=== PATIENT | male | born 1960 | race Caucasian/White ===

== ENCOUNTER → 2025-06-14 10:49 | Outpatient (REF) | payer MEDICARE, BC, SELFPAY | LOC: HWRAD 10:49 | PROVIDERS: ATTENDING PHYSICIAN Nurse Practitioner Acute Care | DX: M25.532 Pain in left wrist (principal); R22.32 Localized swelling, mass and lump, left upper limb | CPT/HCPCS: 73110; 73130 ==

== ENCOUNTER 2025-06-24 11:38 | Emergency (ER) | payer MEDICARE, BC, SELFPAY ==
[2025-06-24 11:52] VITALS: BP 126/77
[2025-06-24 12:23] VITALS: BMI 25.6
[2025-06-24 13:18] VITALS: BP 100/70
--- NOTE | 2025-06-24 13:21 | ED.GENMED ---
History of Present Illness
<Navya Moses PA-C - Last Filed: 06/24/25 15:23>
General
Chief Complaint: Extremity Pain (non-traumatic)
Source: patient
Exam Limitations: none
Time Seen by Provider: 06/24/25 13:06
History of Present Illness
History of Present Illness:
65yo right hand dominant male with a history of hypertension and alcohol abuse currently in rehab presenting for evaluation of left wrist pain and swelling. He developed pain about 5 weeks ago. He denies any specific trauma or inciting incident.
He has noticed worsening swelling over the past week or so. He is now having trouble sleeping at night due to the pain. He has tried Tylenol without relief. He was seen by dermatology earlier this week and was prescribed doxycycline which he
started about 4 days ago. He had outpatient x-rays which were reportedly normal. He is scheduled to see orthopedics next week but does not feel he can wait that long. He denies any fevers or chills. No history of IV drug use or diabetes.
Phy Exam
<Navya Moses PA-C - Last Filed: 06/24/25 15:23>
General Physical Exam
General Presentation: well appearing and no apparent distress
General Skin: warm and dry
General Habitus: normal
General Mental: alert
ENT Exam
ENT Exam: normocephalic
Neurological Exam
Neurological Exam: alert
[place] Coma Scale
Eye Opening: Spontaneous
Verbal Response: Oriented
Motor Response: Obeys Commands
GCS Total Score: 15
Musculoskeletal Exam
Musculoskeletal Exam: other (L wrist: Focal area of swelling at the palmar radial aspect of the wrist that is tender to touch. Surrounding reactive swelling present. No drainage, overlying erythema/warmth, drainage, or fluctuance. ROM of wrist
decreased 2/2 swelling. No pain with micromotion. 2+ radial pulse.)
Skin Exam
Skin Exam: normal color and warm/dry
Psychiatric Exam
Psychiatric Exam: normal mood/affect
Course
<Navya Moses PA-C - Last Filed: 06/24/25 15:23>
Orders/Labs/Results
Orders:
Orders
06/24/25 13:36
[place] Wrist Left-Treatment ONCE
Ketorolac [Toradol] 30 mg IM NOW STA
Vital Signs
Initial and Last Documented VS:
Initial Vital Signs
Temp Pulse Resp BP Pulse Ox
98.6 F 70 18 126/77 95
06/24/25 11:52 06/24/25 11:52 06/24/25 11:52 06/24/25 11:52 06/24/25 11:52
Last Documented Vital Signs
Temp Pulse Resp BP Pulse Ox
98.6 F 71 15 100/70 97
06/24/25 11:52 06/24/25 13:18 06/24/25 13:18 06/24/25 13:18 06/24/25 13:24
<Elvie Nguyen MD - Last Filed: 06/24/25 13:41>
Orders/Labs/Results
Orders:
Orders
06/24/25 13:36
[facility] Wrist Left-Treatment ONCE
Ketorolac [Toradol] 30 mg IM NOW STA
Vital Signs
Initial and Last Documented VS:
Initial Vital Signs
Temp Pulse Resp BP Pulse Ox
98.6 F 70 18 126/77 95
06/24/25 11:52 06/24/25 11:52 06/24/25 11:52 06/24/25 11:52 06/24/25 11:52
Last Documented Vital Signs
Temp Pulse Resp BP Pulse Ox
98.6 F 71 15 100/70 97
06/24/25 11:52 06/24/25 13:18 06/24/25 13:18 06/24/25 13:18 06/24/25 13:24
<Navya Moses PA-C - Last Filed: 06/24/25 15:23>
MDM/Problems Addressed
Differential Diagnosis Includes:
65yoM here with L wrist pain/swelling x 5 weeks that is worsening. Scheduled to see ortho next week. No f/c. VSS. There is a focal area of swelling over the radial aspect of the wrist that is tender. No fluctuance, erythema, or drainage to suggest
abscess. There is reactive swelling surrounding this. No clinical evidence of septic arthritis. LUE is neurovascularly intact. Differential diagnosis includes: ganglion cyst, complex cyst, lipoma
Bedside ultrasound performed with Dr. Nguyen. No fluid collection or areas amenable to drainage seen on ultrasound. ?Lipoma. He was given a wrist brace and a prescription for ibuprofen. He was encouraged to f/u with orthopedics next week as previously
scheduled. He was discharged in stable condition.
<Navya Moses PA-C - Last Filed: 06/24/25 15:23>
*Pulse Oximetry
SaO2: 97
Oxygen Mode of Delivery: Room air
Patient hypoxic: no
*Critical Care Note
Total Time (30-74mins, 75-104mins- exclusive of procedures): Not Applicable
ED Attending Note
<Navya Moses PA-C - Last Filed: 06/24/25 15:23>
-
Portions of this chart may have been created with voice recognition software.� Occasional wrong word or��sound alike� substitutions may have occurred due to the inherent limitations of voice recognition software.
<Elvie Nguyen MD - Last Filed: 06/24/25 13:41>
ED Attending Note
Patient seen and examined by attending physician: Yes
I performed the substantive portion of visit, reviewed & personally made and approve the management plan that is documented in note by myself or KAI.: Yes
ED Attending Note:
I have seen and evaluated the patient with a [id number] encounter. I have spoken to the [KAI] and involved in the medical history, the physical exam, medical decision making.
Evaluation and management service: agree unless noted differently below.
Results interpretation: agree unless noted differently below.
65-year-old man presenting to the emergency department left wrist pain and swelling. Patient states that this is been ongoing for quite some time. He saw his primary care doctor some to dermatology. They started him on doxycycline and treat it
like an abscess. He does have orthopedic appointment scheduled for a few days. However the pain has been persistent so he came in for further evaluation. No numbness tingling. No weakness. He does state the swelling has been worse. No redness.
No fevers chills. No history of IV drug use. On my evaluation patient is resting comfortably. The left wrist does appear slightly more swollen compared to the right wrist. It is not warm or red. He does have an area of focalized circular
swelling that is well-demarcated and. It is overlying the radial artery. I did obtain a bedside ultrasound. He does have a radial artery overlying the circular swelling. Is very well localized. The fluid underneath it is not anechoic. Could be
a lipoma or other soft tissue swelling. Does not appear consistent with an abscess either. History and exam not consistent with septic arthritis. Will discharge patient with a wrist splint and ibuprofen and ice. He will keep appointment for hand
surgery on 06/29.
Discharge Plan
Departure
Patient Disposition: Home (Routine Discharge)
Date of Disposition: 06/24/25
Time of Disposition: 13:36
Patient with high blood pressure during this ER visit?: No
Discharge Problem:
Pain and swelling of left wrist
Instructions: Muscle, joint, and bone pain (DC)
Prescriptions:
New
ibuprofen 600 mg tablet
600 mg PO Q6H PRN (Reason: Pain) Qty: 20 0RF
Referrals:
UNKNOWN - PT DOES,NOT KNOW [Family Provider]
Activity Restrictions/Additional Instructions:
Wear wrist brace for support. Take ibuprofen as prescribed.
Please follow-up with orthopedics next week as previously scheduled.
Interventions
Interventions:
*Risk Screen - Suicide Last Done: 06/24/25 11:56
*General Assessment Last Done: 06/24/25 12:23
*Neglect/Abuse Screening Last Done: 06/24/25 11:56
*ED- Fall Risk Assessment Last Done: 06/24/25 12:23
*ED COVID-19 Vaccine History Last Done: 06/24/25 12:23
*ED Influenza Vaccine History Last Done: 06/24/25 12:23
*Nursing Disposition Last Done: 06/24/25 13:51
ED-Skin Assessment Last Done: 06/24/25 12:24
ED-Peripheral Vascular Assessment Last Done: 06/24/25 12:24
ED-Musculoskeletal Assessment Last Done: 06/24/25 12:24
Discharge Date and Time
Discharge Date/Time: 06/24/25 13:52
Print Language: BELARUSIAN
[2025-06-24] MEDS: TORADOL 30 MG IM (13:40)
== END 2025-06-24 13:52 | disposition home or self-care (01) ==
LOC: EMR 11:38
PROVIDERS: EMERGENCY PHYSICIAN Student in an Organized Health Care Education/Training Program
DX: M25.532 Pain in left wrist (principal); R22.32 Localized swelling, mass and lump, left upper limb; I10 Essential (primary) hypertension; F10.10 Alcohol abuse, uncomplicated
CPT/HCPCS: 99282; 96372